=== PATIENT | male | born 1970 | race Caucasian/White ===

== ENCOUNTER 2019-05-30 01:07 | Inpatient (IN) ==
--- NOTE | 2019-05-30 01:30 | DR.ABDMALE ---
HPI Time seen Time Seen by Provider: 05/30/19 01:30 PCP Primary Care Physician: ALEX SOSA HPI comment HPI Comment: 2 day hx of upper abd pain, burning in quality, non radiating, constant, waxing/ waning, no change w/ po intake, non pleuritic, a/w nausea w/o vomiting. No f/c, CP, SOB, cough/ cold/ congestion, vomiting, blood per rectum, diarrhea. Complaint Chief Complaint:: ABDOMINAL PAIN BEGAN 36-40 HOURS AGO BELOW STERNUM; HAS BECOME MORE INTENSE ASSOCIATED WITH NAUSEA; LBM 05/29/2019; Self Treatment fo Chief Complaint: TYLENOL Mode of arrival Mode of Arrival: Ambulatory Timing Onset of Chief Complaint: 05/29/19 Came on: Gradually Location Location: RUQ, LUQ and Epigastric Severity Severity: Moderate Quality Quality: Burning Context History of: negative Abdominal surgery and Similar pain (dx) Modifying factors Worsening Factors: Nothing Improving Factors: Nothing Associated signs and symptoms Associated Signs and Symptoms: Nausea; denies Vomiting, Diarrhea, Constipation, Hematemesis, Hematochezia, Melena, Dysuria and Hematuria PMH PMH Past Medical History: Yes Past Medical History: Hypertension Past Surgical History: No Family History History of Family Medical Conditions: No Family Medical History: Hypertension Social History Does patient currently use any type of tobacco product: Yes Type of Tobacco Use: Cigarettes Alcohol Use: Occasionally Do you use any recreational Drugs:: No Lives With: Spouse Lives Where: Home infectious screening In the last 2 months have you had wt loss of >10#?: NO Have you had fever, night sweats or hemotysis?: No Have you traveled outside the country in the last 6 months?: No Isolation: Standard ROS Review of Systems Constitutional: No Symptoms Reported Eyes: No Symptoms Reported ENTM: No Symptoms Reported Respiratoy: No Symptoms Reported; negative Short of Breath Cardiovascular: No Symptoms Reported; negative Chest Pain, Palpitations and Syncope Gastrointestinal/Abdominal: Abdominal Pain and Nausea; negative Constipation, Diarrhea and Vomiting Genitourinary: No Symptoms Reported Neurological: No Symptoms Reported Musculoskeletal: No Symptoms Reported Integumentary: No Symptoms Reported Hematologic/Lymphatic: No Symptoms Reported Endocrine: No Symptoms Reported Psychiatric: No Symptoms Reported All Other Systems: Reviewed and Negative PE Vital Signs Vital Signs: Temp Pulse Resp BP BP Pulse Ox 05/30/19 04:17 18 05/30/19 04:00 99 H 22 118/76 97 05/30/19 03:00 83 16 115/72 98 05/30/19 02:00 90 20 115/72 80 L 05/30/19 01:51 20 05/30/19 01:15 97.7 F 117 H 24 129/77 95 10/22/18 20:00 166/100 General Limitations: No Limitations General Appearance: Alert and In Distress Head Head Exam: Normal Inspection Eyes Eye exam: Normal Appearance ENT ENT Exam: Normal Exam Neck Neck Exam: Normal Inspection Chest Chest Inspection: Normal Inspection Respiratory Respiratory Exam: Normal Lung Sounds Bilat Cardiovascular Cardiovascular Exam: Regular Rate and Normal Rhythm Abdominal Exam Abdominal Exam: Normal Inspection, Normal Bowel Sounds, Distention, Tenderness and Guarding; negative Rebound and Rigidity Abdominal Tenderness: RUQ, LUQ and Epigastrium Rectal Rectal Exam: Deferred Back Back Exam: Normal Inspection Extremeties Extremities Exam: Normal Inspection Exam: Male: Deferred Neurologic Neurological Exam: Alert and Oriented X3 Psychiatric Psychiatric Exam: Normal Affect and Normal Mood Skin Skin Exam: Warm, Dry, Intact and Normal Color MDM Differential Diagnosis Differential Diagnosis: AAA, Angina/UT, Aortic dissection, Cholcystitis, Chol elethiasis, Esophagitis, Gastritus/PUD, Gastroenteritis and Pancreatitis COURSE Treatment Treatment: 49 yo m presents w/ upper abd pain. Lipase significantly elevated. Started on ivf's. Required narcotic analgesics/ antiemetics w/ relief on serial exam. BMp w/ evidence of giana. CT demonstrated pancreatitis. No evidence of ch olecytitis. D/w dr bradford whom agrees to admit. EKG w/ st segment depression in lateral leads, tni negative. Patient states he reportedly had a negative stress test w/I the past year. Education/Counseling Education/Counseling: Patient and Family Educated On: Treatment, Diagnosis, Prognosis and Needs for Follow Up ROR Labs Reviewed Laboratory Results Reviewed?: Yes Result Diagrams: 05/30/19 01:30 05/30/19 01:30 Laboratory: WBC 12.5 X10^3/uL (3.6-10.0) H 05/30/19 01:30 RBC 4.67 X10^6/uL (4.7-6.0) L 05/30/19 01:30 Hgb 17.1 g/dL (13.5-18.0) 05/30/19 01:30 Hct 48.4 % (42.0-54.0) 05/30/19 01:30 MCV 103.5 fL (80.0-100.0) H 05/30/19 01:30 MCH 36.6 pg (27.0-34.0) H 05/30/19 01:30 MCHC 35.3 g/dL (33.0-35.0) H 05/30/19 01:30 RDW 12.8 % (11.6-16.5) 05/30/19 01:30 Plt Count 134 X10^3/uL (150.0-450.0) L 05/30/19 01:30 MPV 8.3 fL (7.4-11.0) 05/30/19 01:30 Neut % (Auto) 84.5 % (42.0-75.0) H 05/30/19 01:30 Lymph % (Auto) 11.3 % (21.0-51.0) L 05/30/19 01:30 [place] % (Auto) 2.4 % (0.0-13.0) 05/30/19 01:30 Eos % (Auto) 1.2 % (0.9-2.9) 05/30/19 01:30 Baso % (Auto) 0.6 % (0.2-1.0) 05/30/19 01:30 Neut # (Auto) 10.5 x10^3/uL (2.2-4.8) H 05/30/19 01:30 Lymph # (Auto) 1.4 X10^3/uL (1.3-2.9) 05/30/19 01:30 [place] # (Auto) 0.3 x10^3/uL (0.3-0.8) 05/30/19 01:30 Eos # (Auto) 0.2 x10^3/uL (0.0-0.2) 05/30/19 01:30 Baso # (Auto) 0.1 X10^3/uL (0.0-0.1) 05/30/19 01:30 Absolute Nucleated RBC 0.0 /100WBC 05/30/19 01:30 D-Dimer 340 ng/mL (0-400) 05/30/19 01:30 Sodium 132 mmol/L (136-145) L 05/30/19 01:30 Corrected Sodium 133 mmol/L (136-145) L 05/30/19 01:30 Potassium 3.6 mmol/L (3.5-5.1) 05/30/19 01:30 Chloride 92 mmol/L (98-107) L 05/30/19 01:30 Carbon Dioxide 29.8 mmol/L (21-32) 05/30/19 01:30 BUN 20 mg/dL (7-18) H 05/30/19 01:30 Creatinine 1.52 mg/dL (0.70-1.30) H 05/30/19 01:30 Est GFR (MDRD) Af Amer > 60 (>60) 05/30/19 01:30 Est GFR (MDRD) Non-Af 52 (>60) L 05/30/19 01:30 Glucose 151 mg/dL (65-99) H 05/30/19 01:30 Calcium 7.8 mg/dL (8.5-10.1) L 05/30/19 01:30 Corrected Calcium TNP 05/30/19 01:30 Total Bilirubin 1.30 mg/dL (0.2-1.0) H 05/30/19 01:30 AST 52 Units/L (15-37) H 05/30/19 01:30 ALT 56 Units/L (12-78) 05/30/19 01:30 Alkaline Phosphatase 78 Units/L (46-116) 05/30/19 01:30 Troponin I < 0.02 ng/mL (0-1.5) 05/30/19 01:30 Total Protein 7.1 g/dL (6.4-8.2) 05/30/19 01:30 Albumin 3.7 g/dL (3.4-5.0) 05/30/19 01:30 Globulin 3.4 g/dL (2.5-4.5) 05/30/19 01:30 Albumin/Globulin Ratio 1.1 Ratio (1.1-2.1) 05/30/19 01:30 Lipase 1054 Units/L (73-393) H 05/30/19 01:30 XRAY XRAY Interpreted by: Radiologist XRAY Findings: ct abd w/ evidence of pancreatitis EKG Rate: 93 [place]: Normal Rhythm: NSR Block: None Hypertrophy: None ST: Inf, Lat and Ischemia Opioid Opioid Risk Tool Total: 0 Total Score Risk Category: Low Risk Copyright: Ok NEGRETE predicting aberrant behaviors Diagnosis Discharge Problem: Acute pancreatitis Qualifiers: Pancreatitis type: unspecified pancreatitis type Acute pancreatitis complication: no infection or necrosis Qualified Code(s): K85.90 - Acute pancreatitis without necrosis or infection, unspecified Gastritis Qualifiers: Gastritis type: unspecified gastritis Chronicity: acute Gastritis bleeding: without bleeding Qualified Code(s): K29.00 - Acute gastritis without bleeding Instructions Forms: Excuse From Work
[2019-05-30] MEDS ORDERED: ZOFRAN INJ 4 MG VIAL IVP ONE (01:36)
[2019-05-30] MEDS ORDERED: DILAUDID INJ IVP ONE ×2 (01:36→02:20)
[2019-05-30] MEDS ORDERED: ZOFRAN INJ 4 MG VIAL ONE (01:42)
[2019-05-30 01:43] LABS: BASOPHILS # (AUTO) 0.1 X10^3/uL (0.0-0.1); BASOPHILS % (AUTO) 0.6 % (0.2-1.0); EOSINOPHILS # (AUTO) 0.2 x10^3/uL (0.0-0.2); EOSINOPHILS % (AUTO) 1.2 % (0.9-2.9); HEMATOCRIT 48.4 % (42.0-54.0); HEMOGLOBIN 17.1 g/dL (13.5-18.0); LYMPHOCYTES # (AUTO) 1.4 X10^3/uL (1.3-2.9); LYMPHOCYTES % (AUTO) 11.3 % (21.0-51.0); MEAN CORPUSCULAR HEMOGLOBIN 36.6 pg (27.0-34.0); MEAN CORPUSCULAR HGB CONC 35.3 g/dL (33.0-35.0); MEAN CORPUSCULAR VOLUME 103.5 fL (80.0-100.0); MEAN PLATELET VOLUME 8.3 fL (7.4-11.0); MONOCYTES # (AUTO) 0.3 x10^3/uL (0.3-0.8); MONOCYTES % (AUTO) 2.4 % (0.0-13.0); NEUTROPHILS # (AUTO) 10.5 x10^3/uL (2.2-4.8); NEUTROPHILS % (AUTO) 84.5 % (42.0-75.0); PLATELET COUNT 134 X10^3/uL (150.0-450.0); RED BLOOD COUNT 4.67 X10^6/uL (4.7-6.0); RED CELL DISTRIBUTION WIDTH 12.8 % (11.6-16.5); WHITE BLOOD COUNT 12.5 X10^3/uL (3.6-10.0)
[2019-05-30] MEDS ORDERED: DILAUDID INJ ONE ×3 (01:43→09:21)
[2019-05-30 01:56] LABS: ALBUMIN 3.7 g/dL (3.4-5.0); ALKALINE PHOSPHATASE 78 Units/L (46-116); BLOOD UREA NITROGEN 20 mg/dL (7-18); CALCIUM 7.8 mg/dL (8.5-10.1); CARBON DIOXIDE 29.8 mmol/L (21-32); CHLORIDE 92 mmol/L (98-107); COR NA(FOR HYPERGLY) 133 mmol/L (136-145); CREATININE 1.52 mg/dL (0.70-1.30); LIPASE 1054 Units/L (73-393); SODIUM 132 mmol/L (136-145); TOTAL PROTEIN 7.1 g/dL (6.4-8.2); TROPONIN I < 0.02 ng/mL (0-1.5); eGFR NON BLACK RACES 52 (>60)
[2019-05-30 02:09] LABS: ALANINE AMINOTRANSFERASE 56 Units/L (12-78); ASPARTATE AMINO TRANSFERASE 52 Units/L (15-37)
[2019-05-30] MEDS ORDERED: NS 1000 ML 1,000 ML IV ONE ×2 (02:11→02:20)
[2019-05-30] MEDS ORDERED: NS 1000 ML 1,000 ML ONE ×3 (02:12→06:15)
[2019-05-30] MEDS ORDERED: MORPHINE SULFATE INJ 4 MG IVP PRN (05:58)
[2019-05-30] MEDS ORDERED: ZOFRAN INJ 4 MG VIAL IVP PRN (05:58)
[2019-05-30] MEDS ORDERED: MORPHINE SULFATE INJ 4 MG ONE (06:20)
[2019-05-30] MEDS: NS 1000 ML 1,000 ML IV SCH ×5 (06:20→22:30)
[2019-05-30] MEDS ORDERED: CATAPRES TAB 0.2 MG PO PRN (09:15)
[2019-05-30] MEDS ORDERED: LR 1000 ML IV 1,000 ML IV ONE ×2 (09:18→09:53)
[2019-05-30] MEDS: DILAUDID INJ IVP PRN ×5 (09:35→23:45)
[2019-05-30] MEDS: ZESTORETIC 20/25 MG PO SCH (10:52)
[2019-05-30 11:11] LABS: BILIRUBIN,URINE NEGATIVE (NEGATIVE); BLOOD/HEMOGLOBIN,URINE 1+ (NEGATIVE); GLUCOSE, URINE NEGATIVE (NEGATIVE); KETONES,URINE NEGATIVE (NEGATIVE); LEUKOCYTE ESTERASE ,URINE 1+ (NEGATIVE); NITRITES,URINE NEGATIVE (NEGATIVE); PH,URINE 6.5 (5.0 - 8.0); PROTEIN,URINE 2+ (NEGATIVE); UROBILINOGEN,URINE NORMAL (NORMAL)
[2019-05-30 11:16] LABS: APPEARANCE,URINE HAZY (CLEAR); BACTERIA,URINE NEGATIVE /HPF (NEGATIVE); COLOR,URINE YELLOW (YELLOW); MUCUS,URINE FEW /HPF (NEGATIVE); RBC,URINE 0-2 /HPF (0-3); SQUAMOUS EPITHELIAL CELL,UR NEGATIVE /HPF (NEGATIVE)
[2019-05-30 11:44] VITALS: BMI 31.6
[2019-05-30] MEDS: TYLENOL 325 MG TAB PO PRN (23:22)
[2019-05-31] MEDS: NS 1000 ML 1,000 ML IV SCH ×5 (03:24→23:52)
[2019-05-31] MEDS: DILAUDID INJ IVP PRN ×4 (03:25→21:48)
[2019-05-31 06:29] LABS: BASOPHILS % (AUTO) 0.3 % (0.2-1.0); EOSINOPHILS # (AUTO) 0.3 x10^3/uL (0.0-0.2); EOSINOPHILS % (AUTO) 2.9 % (0.9-2.9); HEMATOCRIT 40.3 % (42.0-54.0); HEMOGLOBIN 14.3 g/dL (13.5-18.0); LYMPHOCYTES # (AUTO) 1.4 X10^3/uL (1.3-2.9); LYMPHOCYTES % (AUTO) 15.6 % (21.0-51.0); MEAN CORPUSCULAR HEMOGLOBIN 36.9 pg (27.0-34.0); MEAN CORPUSCULAR HGB CONC 35.5 g/dL (33.0-35.0); MEAN PLATELET VOLUME 9.1 fL (7.4-11.0); MONOCYTES # (AUTO) 0.4 x10^3/uL (0.3-0.8); MONOCYTES % (AUTO) 4.1 % (0.0-13.0); NEUTROPHILS # (AUTO) 6.8 x10^3/uL (2.2-4.8); NEUTROPHILS % (AUTO) 77.1 % (42.0-75.0); PLATELET COUNT 80 X10^3/uL (150.0-450.0); RED BLOOD COUNT 3.87 X10^6/uL (4.7-6.0); RED CELL DISTRIBUTION WIDTH 12.9 % (11.6-16.5); WHITE BLOOD COUNT 8.8 X10^3/uL (3.6-10.0)
[2019-05-31 06:50] LABS: ALANINE AMINOTRANSFERASE 33 Units/L (12-78); ALBUMIN 2.9 g/dL (3.4-5.0); ALKALINE PHOSPHATASE 62 Units/L (46-116); AMYLASE 33 Units/L (25-115); ASPARTATE AMINO TRANSFERASE 31 Units/L (15-37); BLOOD UREA NITROGEN 10 mg/dL (7-18); CALCIUM 6.7 mg/dL (8.5-10.1); CARBON DIOXIDE 27.4 mmol/L (21-32); CHLORIDE 98 mmol/L (98-107); COR CA(FOR HYPOALB) 7.6 mg/dL (8.5-10.1); COR NA(FOR HYPERGLY) 134 mmol/L (136-145); CREATININE 1.29 mg/dL (0.70-1.30); LIPASE 248 Units/L (73-393); SODIUM 133 mmol/L (136-145); TOTAL PROTEIN 6.3 g/dL (6.4-8.2); eGFR NON BLACK RACES > 60 (>60)
[2019-05-31] MEDS: TYLENOL 325 MG TAB PO PRN (08:23)
[2019-05-31] MEDS: ZESTORETIC 20/25 MG PO SCH (08:23)
[2019-05-31] MEDS ORDERED: NORCO 7.5/325 MG TAB ONE (08:59)
[2019-05-31] MEDS: NORCO 7.5/325 MG TAB PO PRN ×2 (09:01→14:43)
[2019-05-31] MEDS ORDERED: CATAPRES TAB 0.1 MG PO PRN (09:05)
[2019-05-31] MEDS: FOLIC ACID TAB 1 MG PO SCH (10:57)
[2019-06-01] MEDS: DILAUDID INJ IVP PRN (01:50)
[2019-06-01] MEDS: NS 1000 ML 1,000 ML IV SCH ×3 (05:58→10:38)
[2019-06-01 08:14] VITALS: BP 145/92
[2019-06-01] MEDS: NORCO 7.5/325 MG TAB PO PRN (08:28)
[2019-06-01] MEDS: ZESTORETIC 20/25 MG PO SCH (08:28)
[2019-06-01] MEDS: FOLIC ACID TAB 1 MG PO SCH (08:28)
[2019-06-01 09:55] LABS: BASOPHILS % (AUTO) 0.4 % (0.2-1.0); EOSINOPHILS # (AUTO) 0.3 x10^3/uL (0.0-0.2); EOSINOPHILS % (AUTO) 4.3 % (0.9-2.9); HEMATOCRIT 35.5 % (42.0-54.0); HEMOGLOBIN 12.6 g/dL (13.5-18.0); LYMPHOCYTES # (AUTO) 0.9 X10^3/uL (1.3-2.9); LYMPHOCYTES % (AUTO) 11.3 % (21.0-51.0); MEAN CORPUSCULAR HEMOGLOBIN 36.6 pg (27.0-34.0); MEAN CORPUSCULAR HGB CONC 35.5 g/dL (33.0-35.0); MEAN CORPUSCULAR VOLUME 103.2 fL (80.0-100.0); MEAN PLATELET VOLUME 8.7 fL (7.4-11.0); MONOCYTES # (AUTO) 0.5 x10^3/uL (0.3-0.8); MONOCYTES % (AUTO) 6.3 % (0.0-13.0); NEUTROPHILS # (AUTO) 6.1 x10^3/uL (2.2-4.8); NEUTROPHILS % (AUTO) 77.7 % (42.0-75.0); PLATELET COUNT 80 X10^3/uL (150.0-450.0); RED BLOOD COUNT 3.45 X10^6/uL (4.7-6.0); RED CELL DISTRIBUTION WIDTH 12.9 % (11.6-16.5); WHITE BLOOD COUNT 7.9 X10^3/uL (3.6-10.0)
[2019-06-01 10:03] LABS: ALANINE AMINOTRANSFERASE 29 Units/L (12-78); ALBUMIN 2.5 g/dL (3.4-5.0); ALKALINE PHOSPHATASE 85 Units/L (46-116); AMYLASE 27 Units/L (25-115); ASPARTATE AMINO TRANSFERASE 29 Units/L (15-37); BLOOD UREA NITROGEN 9 mg/dL (7-18); CALCIUM 7.3 mg/dL (8.5-10.1); CARBON DIOXIDE 22.8 mmol/L (21-32); CHLORIDE 99 mmol/L (98-107); COR CA(FOR HYPOALB) 8.5 mg/dL (8.5-10.1); COR NA(FOR HYPERGLY) 133 mmol/L (136-145); CREATININE 1.21 mg/dL (0.70-1.30); LIPASE 205 Units/L (73-393); SODIUM 132 mmol/L (136-145); TOTAL PROTEIN 6.1 g/dL (6.4-8.2); eGFR NON BLACK RACES > 60 (>60)
--- NOTE | 2019-06-03 10:32 | CT ---
STUDY: CT ABDOMEN AND PELVIS WITH IV CONTRASTCOMPARISON: NoneTECHNIQUE: Axial images were acquired of the abdomen and pelvis with IV contrast. Sagittal and coronal reformatted images were provided. All images were reviewed in a variety of windows and levels.RADIATION REDUCTION TECHNIQUE: Automated exposure control, Adjustment of the mA and/or kV according to patient size, or iterative reconstruction techniques were used.HISTORY: RUQ PAIN, R/O CHOLECYSTITISFINDINGS:LOWER THORAX: The visualized lower lung zones are clear. The heart size is within normal limits. There is no evidence of pericardial effusion.LIVER: No intrahepatic focal lesions are seen. No evidence of intrahepatic or extrahepatic biliary duct dilation.GALLBLADDER: The gallbladder is unremarkable.SPLEEN: The spleen enhances homogeneously and is unremarkable.PANCREAS: Peripancreatic inflammatory changes are seen suggesting acute pancreatitis. There is no CT evidence of pancreatic necrosis. The inflammatory changes seen are extending into the region of the 2nd and 3rd portion of the duodenum with fluid tracking along the right pericolic gutter around the region of the right lower quadrant region. There is inflammatory changes seen extending towards the gallbladder.ADRENAL GLANDS: The adrenal glands enhance homogeneously and are unremarkable.: The kidneys enhance homogeneously and symmetrically. Their collecting system is of normal caliber.URINARY BLADDER: The urinary bladder is unremarkable. There are no soft tissue masses seen within the urinary bladder.?VESSELS: The abdominal aorta is normal in size without evidence of an aneurysm or dissection. The celiac artery, superior mesenteric artery, [place] renal arteries, and inferior mesenteric artery are patent.?GI: The stomach and small bowel is unremarkable. There is fluid throughout the colon suggesting gastroenteritis. There are no inflammatory changes seen in the right lower quadrant to suggest secondary signs of acute appendicitis. The appendix is normal. There is a left inguinal hernia containing omentum.LYMPH NODES AND MESENTERY: There is no evidence of retroperitoneal or mesenteric lymphadenopathy. Scattered lymph nodes that are seen in the retroperitoneum and mesentery do not meet CT criteria for large lymph nodes.BONES: The visualized bones demonstrate mild degenerative changes. There are no concerning lytic or blastic lesions identified.IMPRESSION:1. Findings suggest acute pancreatitis. Please clinically correlate with amylase lipase levels. The inflammatory changes are seen extending to the region of the 2nd and 3rd portion of duodenum with fluid tracking along the right pericolic gutter. There is no fluid collection to suggest abscess formation. There is no CT evidence of pancreatic necrosis. Follow-up with right upper quadrant ultrasound may be obtained as clinically indicated. Please note that acute cholecystitis is better evaluated with ultrasound compared to CT.2. There is fluid throughout the colon suggesting gastroenteritis.3. The appendix is normal4. Left inguinal hernia is noted containing omentum without bowel involvement.Electronically signed by: Nilson Oconnell (May 30, 2019 04:11:39)
--- NOTE | 2019-06-03 10:32 | RAD ---
STUDY: FRONTAL VIEW CHESTCOMPARISON: October 22, 2018HISTORY: chest painFINDINGS:Subsegmental atelectasis is noted.No focal consolidation is seen.The heart size is magnified on this portable technique without radiographic evidence of pulmonary edemaThe mediastinum is unremarkable.There is no evidence of pleural effusion or gross pneumothorax.Trachea is midline.IMPRESSION:1. No focal consolidation is seen.2. The heart size is magnified on this portable technique without radiographic evidence of pulmonary edema. Overall, no significant change from prior study.Electronically signed by: Nilson Oconnell (May 30, 2019 02:41:38)
== END 2019-06-01 11:10 | disposition home or self-care (01) | DRG 440 ==
LOC: ER 01:13 → MED/SURG 01:13 → OBSVTOIN 05:57 → MED/SURG 08:33
PROVIDERS: ADMIT Obstetrics & Gynecology Obstetrics; ATTEND Obstetrics & Gynecology Obstetrics
DX: I10 Essential (primary) hypertension; K29.00 Acute gastritis without bleeding; K85.20 Alcohol induced acute pancreatitis without necrosis or infection; E53.8 Deficiency of other specified B group vitamins; D75.89 Other specified diseases of blood and blood-forming organs; R10.84 Generalized abdominal pain; R94.31 Abnormal electrocardiogram [ECG] [EKG]
CPT/HCPCS: 36415; 71010; 71045; 74177; 80053; 81001; 82150; 82607; 82670; 82746; 83690; 84403; 84425; 84484; 85025; 85378; 87040; 93005; 96365; 96367; 96374; 96375; 99284; A4216; A4222; J1170; J2270; J2405; J3490; J7030; J7120